=== PATIENT | female | born 1950 | race Caucasian/White ===

== ENCOUNTER 2017-03-07 13:38 | Emergency (ER) | payer MEDICARE, BC ==
--- NOTE | 2017-03-07 15:37 | RAD ---
Indication: Right leg pain and edema. Duplex Doppler sonography of the deep venous system of the right lower extremity deep venous system was performed. Bilaterally the common femoral veins appear patent and compressible. Right proximal greater saphenous vein, proximal deep femoral vein, femoral vein, popliteal vein, posterior tibial veins and peroneal veins appear patent and compressible. IMPRESSION: NO EVIDENCE OF DEEP VENOUS THROMBOSIS IS IDENTIFIED.
--- NOTE | 2017-03-07 15:51 | ED ---
Farhan Decker Michael, scribed for Lucy Baca MD on 03/07/17 at 1455 . Lower Extremity - HPI Summary HPI Summary: A 66 y/o female comes to the ED presenting with RLE pain that started this morning. The pt has a hx of superficial thrombophlebitis, which she was dx on 07/21/16 at the ED. The clot was 1 cm from a DVT. The pt was told to return to the ED by her PCP if her LE pain returned. Currently at the ED, the pt c/o RLE pain that started this morning. Nothing aggravates or alleviates her pain. She denies bilat calf pain, CP, SOB, abd pain, and n/v. The PMHx is significant for Factor V Leiden. - History of Current Complaint Chief Complaint: EDExtremityLower Stated Complaint: POSS DVT RT LEG Hx Obtained From: Patient, Medical Records Mechanism Of Injury: Unknown - no known injury Onset of Pain: Immediate, Hours Onset/Duration: Hours Severity Initially: Mild Severity Currently: Mild Pain Intensity: 3 Pain Scale Used: 0-10 Numeric Timing: Constant Location: Is Discrete @ - RLE, medial thigh Character Of Pain: Aching Associated Signs And Symptoms: Positive: Swelling, Other - RLE pain.. Negative : Redness, Bruising Aggravating Factor(s): Nothing Alleviating Factor(s): Nothing Able to Bear Weight: Yes Related History: Other - treated as prior DVT with Lovenox in same leg - Allergies/Home Medications Allergies/Adverse Reactions: Allergies Allergy/AdvReac Type Severity Reaction Status Date / Time No Known Allergies Allergy Verified 03/07/17 13:46 PMH/Surg Hx/FS Hx/Imm Hx Previously Healthy: No - factor V Leiden Endocrine/Hematology History: Reports: Hx Anticoagulant Therapy - not currently , was on Lovenox for 6 mos from 07/31-01/28, Other Endocrine/Hematological Disorders - factor V Leiden Cardiovascular History: Reports: Hx Hypercholesterolemia, Hx Hypertension - Cancer History Hx Chemotherapy: No Hx Radiation Therapy: No - Surgical History Surgery Procedure, Year, and Place: OVARIAN CYSTS, HYSTERECTOMY Infectious Disease History: No Infectious Disease History: Denies: Traveled Outside the [place] in Last 30 Days - Family History Known Family History: Positive: Other - factor V Leiden - Social History Occupation: Retired Lives: Alone Alcohol Use: None Substance Use Type: Reports: None Smoking Status (MU): Never Smoked Tobacco Review of Systems Negative: Fever Cardiovascular: Negative Respiratory: Negative Gastrointestinal: Negative Positive: Other - RLE pain Neurological: Negative Psychological: Normal All Other Systems Reviewed And Are Negative: Yes Physical Exam Triage Information Reviewed: Yes Vital Signs On Initial Exam: Initial Vitals Temp Pulse Resp BP Pulse Ox 98.8 F 94 16 152/84 98 03/07/17 13:46 03/07/17 13:46 03/07/17 13:46 03/07/17 13:46 03/07/17 13:46 Vital Signs Reviewed: Yes Appearance: Positive: Well-Appearing, Well-Nourished, Pain Distress Skin: Positive: Warm, Skin Color Reflects Adequate Perfusion, Dry Head/Face: Positive: Normal Head/Face Inspection Eyes: Positive: Conjunctiva Clear ENT: Positive: Normal ENT inspection, Hearing grossly normal. Negative: Muffled /hoarse voice Neck: Positive: Supple Respiratory/Lung Sounds: Positive: Clear to Auscultation, Breath Sounds Present Cardiovascular: Positive: RRR, Pulses are Symmetrical in both Upper and Lower Extremities. Negative: Murmur Abdomen Description: Positive: Nontender, Soft. Negative: Splenomegaly Musculoskeletal: Positive: Strength/ROM Intact, Other - tender medial anterior right thigh. superficial varicosities.. Negative: Julian Sign Left, Julian Sign Right, Edema Left, Edema Right Neurological: Positive: Sensory/Motor Intact, Alert, Oriented to Person Place, Time. Negative: Facial Droop, Focal Deficit @, Slurred Speech Psychiatric: Positive: Affect/Mood Appropriate - Timothy Coma Scale Coma Scale Total: 15 Diagnostics - Vital Signs Vital Signs Temp Pulse Resp BP Pulse Ox 03/07/17 14:39 90 97 03/07/17 14:37 122/106 03/07/17 13:49 98.8 F 94 18 152/84 98 03/07/17 13:46 98.8 F 94 16 152/84 98 - Laboratory Lab Statement: Any lab studies that have been ordered have been reviewed, and results considered in the medical decision making process. Lower Extremity Course/Dx - Course Course Of Treatment: Pt signed out to Dr. Watt at shift change, pending US and labs. - Diagnoses Differential Diagnosis/HQI/PQRI: Positive: Cellulitis, DVT, Sprain, Strain Provider Diagnoses: Leg pain, right Discharge - Discharge Plan Condition: Stable Disposition: OTHER Discharge Disposition Comment: care to Dr. Watt at change of shift, 1500 The documentation as recorded by the Farhan rosales Michael accurately reflects the service I personally performed and the decisions made by me, uLcy Baca MD.
[2017-03-07 15:53] LABS: Hematocrit 42 % (35-47); Hemoglobin 13.8 g/dl (12.0-16.0); Mean Corpuscular HGB Conc 33 g/dl (31-36); Mean Corpuscular Hemoglobin 29 pg (27-31); Mean Corpuscular Volume 89 fL (80-97); Mean Platelet Volume 8 um3 (7.4-10.4); Red Blood Count 4.75 10^6/ul (4.0-5.4); Red Cell Distribution Width 13 % (10.5-15); White Blood Count 8.4 10^3/ul (3.5-10.8)
[2017-03-07 15:56] LABS: Albumin 3.5 g/dL (3.2-5.2); BUN/Creatinine Ratio 24.2 (8-20); Calcium 8.8 mg/dL (8.6-10.3); EGFR African American 115.2 (>60); EGFR Non-African American 89.6 (>60); Globulin 2.9 g/dL (2-4); Potassium 3.8 mmol/L (3.5-5.0); Total Bilirubin 0.3 mg/dL (0.2-1.0); Total Protein 6.4 g/dL (6.4-8.9)
[2017-03-07 18:04] VITALS: BP 116/65
--- NOTE | 2017-03-09 08:37 | ED ---
Luis M Decker Soohyun, scribed for Reynaldo Watt MD on 03/07/17 at 1800 . Progress - Progress Note Progress Note: This 66 y/o female pt has been signed out to Dr. Watt as a sign out at shift change. Upon re-evaluation at 1738 PM, pt reports her LLE pain is resolved. Venous Doppler Study indicated negative DVT. Pt will be discharged with f/u with Dr. Neal Re-Evaluation - Re-Evaluation First Eval Re-Evaluation Time: 17:38 Change: Improved Comment: LLE pain improved Course/Dx - Course Course Of Treatment: Pt signed out to Dr. Watt at shift change, pending US and labs. - Diagnoses Provider Diagnoses: Leg pain, right The documentation as recorded by the daneibLuis M coles Soohyun accurately reflects the service I personally performed and the decisions made by Alysa connors Jerry, MD.
== END 2017-03-07 18:05 | disposition home or self-care (01) ==
LOC: ED 13:38
DX: M79.604 Pain in right leg (principal)
CPT/HCPCS: 36415; 80053; 85025; 85610; 99283

== ENCOUNTER 2020-12-28 08:25 | Observation (INO) ==
[2020-12-28] MEDS ORDERED: NS 0.9% 1000 ml BAG 1,000 ML IV ONE (08:38)
[2020-12-28 09:20] LABS: ABS Basophils 0.1 10^3/ul (0-0.2); ABS Eosinophils 0.1 10^3/ul (0-0.6); ABS Lymphocytes 0.6 10^3/ul (1.0-4.8); ABS Monocytes 0.5 10^3/ul (0-0.8); ABS Neutrophils 9.1 10^3/ul (1.5-7.7); Eosinophil % 1.3 %; Hematocrit 40 % (35-47); Hemoglobin 13.5 g/dL (12.0-16.0); Lymphocyte % 5.4 %; Mean Corpuscular HGB Conc 34 g/dL (31-36); Mean Corpuscular Hemoglobin 31 pg (27-31); Mean Corpuscular Volume 92 fL (80-97); Mean Platelet Volume 7.8 fL (7.4-10.4); Platelet Count 300 10^3/uL (150-450); Red Blood Count 4.39 10^6 /uL (3.70-4.87); Red Cell Distribution Width 13 % (10-15); White Blood Count 10.3 10^3/uL (3.5-10.8)
[2020-12-28 09:30] LABS: Activated Partial Thrombo Time 22.2 seconds (26.0-38.0); INR 1.03 (0.82-1.09)
[2020-12-28 09:55] LABS: ALT 9 U/L (7-52); AST 14 U/L (13-39); Albumin 3.6 g/dL (3.2-5.2); Albumin/Globulin Ratio 1.2 (1-3); Alkaline Phosphatase 85 U/L (34-104); Anion Gap 8 mmol/L (2-11); Blood Urea Nitrogen 13 mg/dL (6-24); CO2 Carbon Dioxide 23 mmol/L (22-32); Calcium 8.9 mg/dL (8.6-10.3); Chloride 107 mmol/L (101-111); EGFR Non-African American 90.1 (>60); Globulin 2.9 g/dL (2-4); Glucose 114 mg/dL (70-100); Magnesium 1.7 mg/dL (1.9-2.7); Potassium 3.7 mmol/L (3.5-5.0); Sodium 138 mmol/L (135-145); Total Protein 6.5 g/dL (6.4-8.9)
[2020-12-28 10:00] LABS: Alcohol, S < 10 mg/dL (<10)
[2020-12-28 10:16] LABS: TSH Ultra Thyroid Stim Horm 1.64 mcIU/mL (0.34-5.60)
[2020-12-28] MEDS ORDERED: Magnesium Sulfate IV 1GM/100ML 1 GM/100 ML BAG IV ONE (10:54)
[2020-12-28] MEDS ORDERED: Iohexol 350 (CONTRAST) 500 ML MDV IV ONE (12:37)
[2020-12-28 15:19] LABS: Urine Appearance Clear; Urine Bilirubin Negative (Negative); Urine Blood Negative (Negative); Urine Color Yellow; Urine Glucose Negative (Negative); Urine Ketones Negative (Negative); Urine Nitrite Negative (Negative); Urine Protein Negative (Negative); Urine Urobilinogen Negative (Negative)
[2020-12-28] MEDS: Enoxaparin 40 MG/0.4 ML SYR SUBCUT SCH (15:51)
[2020-12-29 06:43] LABS: ABS Basophils 0.1 10^3/ul (0-0.2); ABS Eosinophils 0.7 10^3/ul (0-0.6); ABS Lymphocytes 1.5 10^3/ul (1.0-4.8); ABS Monocytes 0.8 10^3/ul (0-0.8); ABS Neutrophils 3.3 10^3/ul (1.5-7.7); Eosinophil % 11.7 %; Hematocrit 36 % (35-47); Hemoglobin 12.2 g/dL (12.0-16.0); Lymphocyte % 22.8 %; Mean Corpuscular HGB Conc 34 g/dL (31-36); Mean Corpuscular Hemoglobin 31 pg (27-31); Mean Corpuscular Volume 91 fL (80-97); Mean Platelet Volume 7.8 fL (7.4-10.4); Platelet Count 281 10^3/uL (150-450); Red Blood Count 3.97 10^6 /uL (3.70-4.87); Red Cell Distribution Width 13 % (10-15); White Blood Count 6.4 10^3/uL (3.5-10.8)
[2020-12-29 07:02] LABS: BUN/Creatinine Ratio 24.6 (8-20); Calcium 8.6 mg/dL (8.6-10.3); EGFR African American 126.9 (>60); EGFR Non-African American 104.9 (>60); Magnesium 1.9 mg/dL (1.9-2.7); Potassium 3.8 mmol/L (3.5-5.0)
[2020-12-29] MEDS ORDERED: Aspirin EC 81 mg TAB.EC (enteric coated) PO SCH (09:00)
[2020-12-29 12:08] VITALS: BP 120/56
[2020-12-29] MEDS: Enoxaparin 40 MG/0.4 ML SYR SUBCUT SCH (15:07)
== END 2020-12-29 15:30 | disposition home or self-care (01) ==
LOC: ED 08:25 → MEDTELE 08:25
PROVIDERS: ADMIT Internal Medicine; ATTEND Internal Medicine